=== PATIENT | female | born 1985 | race Caucasian/White ===

== ENCOUNTER 2024-03-12 10:00 | Inpatient (IN) | payer BC ==
[2024-03-12] MEDS: ELECTROLYTE-148 SOLN 500 ML IV ONE (11:00)
[2024-03-12] MEDS ORDERED: morphine SULFATE (PF) 1 MG/2 ML SYRINGE ONE (11:42)
[2024-03-12] MEDS ORDERED: FENTANYL CITRATE/PF 50 MCG/ML VIAL ONE (11:42)
[2024-03-12] MEDS: CITRIC ACID/SODIUM CITRATE 30 ML UNIT-DOSE CUP PO ONE (11:45)
[2024-03-12] MEDS: ELECTROLYTE-148 SOLN 1,000 ML IV SCH (11:50)
[2024-03-12] MEDS ORDERED: OXYTOCIN 10 UNITS/ML VIAL ONE ×2 (12:26→12:45)
[2024-03-12 12:27] VITALS: BMI 44.8
[2024-03-12] MEDS ORDERED: LIDOCAINE HCL/PF 2% SDV 5ML VIAL ONE (12:51)
[2024-03-12] MEDS ORDERED: ONDANSETRON 4 MG/2 ML VIAL ONE (12:52)
[2024-03-12] MEDS ORDERED: ceFAZolin SODIUM 1 GM VIAL ONE (12:52)
[2024-03-12] MEDS ORDERED: PHENYLEPHRINE HCL 10 MG/1 ML SINGLE DOSE VIAL ONE (12:53)
[2024-03-12] MEDS ORDERED: KETOROLAC TROMETHAMINE 30 MG/1 ML VIAL ONE (13:07)
[2024-03-12 13:15] LABS: CORD PCO2 51.8 mmHg (30-78); CORD pH 7.246 (7.14-7.44)
[2024-03-12 13:16] LABS: CORD BASE EXCESS -5.2 mmol/L (0-2); CORD HCO3 20.8 mmHg (20-29); CORD PCO2 42.3 mmHg (30-78); CORD pH 7.31 (7.14-7.44)
[2024-03-12] MEDS ORDERED: ONDANSETRON 4 MG/2 ML VIAL IVPUSH PRN (13:34)
[2024-03-12] MEDS ORDERED: METHYLERGONOVINE MALEATE 0.2 MG/1 ML AMP IM PRN (13:38)
[2024-03-12] MEDS ORDERED: OXYTOCIN 20 UNITS in 0.9% NS 20 UNIT/1,000 ML INFUS.BAG IV ONE (15:13)
[2024-03-12] MEDS: OXYTOCIN 20 UNITS in 0.9% NS 20 UNIT/1,000 ML INFUS.BAG IV SCH (15:25)
[2024-03-12] MEDS: morphine SULFATE/PF 1 MG/2 ML (2cc Syringe - QUVA) IT ONE (15:44)
[2024-03-13] MEDS ORDERED: oxyCODONE HCL 5 MG TABLET PO PRN (01:38)
[2024-03-13] MEDS: IBUPROFEN 800 MG/8 ML IJ IVPB PRN (04:08)
[2024-03-13] MEDS: LEVOTHYROXINE NA 150 MCG TABLET PO SCH (05:59)
[2024-03-13 08:14] LABS: BASO % 0.3 % (0-2.0); EOS % 1.2 % (0-4.5); HEMATOCRIT 30.5 % (32.4-45.2); HEMOGLOBIN 10.1 GM/dL (10.7-15.3); LYMPH % 6.8 % (8-40); MCH 29.1 pg (25.7-33.7); MCHC 33.1 g/dl (32.0-36.0); MEAN CELL VOLUME 87.7 fl (80-96); MEAN PLT VOLUME 9.2 fl (7.5-11.1); MONO % 8.7 % (3.8-10.2); PLATELET COUNT 276 10^3/uL (134-434); RBC 3.48 M/mm3 (3.60-5.2); RDW 16.9 % (11.6-15.6); WHITE BLOOD COUNT 12.3 K/mm3 (4.0-10.0)
[2024-03-13] MEDS: ENOXAPARIN NA (PORCINE) 40 MG/0.4 ML DISP.SYRIN SQ SCH (09:45)
[2024-03-13] MEDS: DIPHTH,PERTUSS(ACELL),TET 0.5 ML DISP.SYRIN IM ONE (09:48)
[2024-03-13] MEDS: ACETAMINOPHEN 325 MG TABLET (FP) PO PRN (12:12)
[2024-03-13] MEDS: IBUPROFEN 600 MG TABLET (FP) PO PRN (18:29)
[2024-03-13] MEDS: SIMETHICONE 80 MG TAB.CHEW (FP) PO PRN (19:37)
[2024-03-13] MEDS: oxyCODONE HCL 5 MG TABLET PO PRN (22:29)
[2024-03-14] MEDS: FLU VACCINE (FLULAVAL) PF 45 MCG/0.5 ML SYRINGE 2024-2025 IM ONE (08:30)
[2024-03-14] MEDS: BISACODYL 10 MG SUPP.RECT RC PRN (13:11)
[2024-03-14 22:47] VITALS: RESP 18
[2024-03-15 08:48] LABS: HEMATOCRIT 29.7 % (32.4-45.2); HEMOGLOBIN 9.7 GM/dL (10.7-15.3); MCH 29.1 pg (25.7-33.7); MCHC 32.8 g/dl (32.0-36.0); MEAN CELL VOLUME 88.7 fl (80-96); MEAN PLT VOLUME 8.9 fl (7.5-11.1); PLATELET COUNT 305 10^3/uL (134-434); RBC 3.34 M/mm3 (3.60-5.2); RDW 17.2 % (11.6-15.6); WHITE BLOOD COUNT 9.2 K/mm3 (4.0-10.0)
[2024-03-15 09:13] VITALS: BP 129/84; PULSE 104; TEMP 98.1
[2024-03-15 10:06] LABS: ANISOCYTOSIS 0; HELMET CELLS 0; HOWELL-JOLLY BODIES 0; MACROCYTOSIS 0; OVALOCYTE 0; ROULEAU 0; SICKELED CELLS 0; TARGET CELLS 0; TEAR DROP CELLS 0; TOXIC GRANULATION 0
== END 2024-03-15 15:30 | disposition home or self-care (01) | DRG 788 ==
LOC: JLDR 10:00 → J3W 15:26
PROVIDERS: ADMIT Obstetrics & Gynecology; ATTEND Obstetrics & Gynecology
PROC: 10D00Z1 Extraction of Products of Conception, Low, Open Approach (ICD-10-PCS; principal; 2024-03-12)
DX: O14.94 Unspecified pre-eclampsia, complicating childbirth (principal); O36.63X0 Maternal care for excessive fetal growth, third trimester, not applicable or unspecified; O99.213 Obesity complicating pregnancy, third trimester; O99.283 Endocrine, nutritional and metabolic diseases complicating pregnancy, third trimester; Z3A.39 39 weeks gestation of pregnancy; Z37.0 Single live birth
CPT/HCPCS: 36415; 36600; 82803; 85025; 86803; 86922; 88307-TC; 90715